=== PATIENT | female | born 1985 ===

== ENCOUNTER 2024-11-03 21:32 | Emergency (ER) | payer OTHER ==
[2024-11-03 22:12] LABS: BASOPHILS ABSOLUTE AUTO 0.02 10^3/uL (0.00-0.50); BASOPHILS PERCENT AUTO 0.1 % (0-1); HEMATOCRIT 39.6 % (37.0-47.0); HEMOGLOBIN 13.3 g/dL (12.0-16.0); IMMATURE GRAN ABSOLUTE AUTO 0.07 10^3/uL (0.00-0.49); IMMATURE GRAN PERCENT AUTO 0.5 % (0.0-4.9); LYMPHOCYTES ABSOLUTE AUTO 1.07 10^3/uL (0.60-5.00); MEAN CORPUSCULAR HEMOGLOBIN 32.6 pg (27.0-32.0); MEAN CORPUSCULAR HGB CONC 33.6 g/dL (32.0-36.0); MEAN CORPUSCULAR VOLUME 97.1 fL (83.0-97.0); MONOCYTES ABSOLUTE AUTO 0.59 10^3/uL (0.00-1.50); MONOCYTES PERCENT AUTO 4.4 % (0-10); NEUTROPHILS ABSOLUTE AUTO 11.64 x10^3/uL (1.80-8.00); PLATELET COUNT,PLT 356 10^3/uL (150-400); RED BLOOD CELL COUNT 4.08 x10^6/uL (4.00-5.50); WHITE BLOOD CELL COUNT,WBC 13.4 10^3/uL (4.0-11.0)
[2024-11-03 22:25] LABS: ALANINE AMINOTRANSFERASE,ALT 30 U/L (12-78); ALBUMIN 3.3 g/dL (3.4-5.0); ALKALINE PHOSPHATASE 76 U/L (46-116); ASPARTATE AMNIOTRANSFERASE,AST 27 U/L (15-37); BILIRUBIN TOTAL 0.2 mg/dL (0.0-1.0); BLOOD UREA NITROGEN,BUN 8 mg/dL (7-18); CALCIUM 8.3 mg/dL (8.4-10.1); CARBON DIOXIDE,CO2 24 mmol/L (21-32); CHLORIDE,CL 105 mEq/L (98-106); CREATININE 0.8 mg/dL (0.6-1.0); ETHANOL BLOOD MEDICAL 200 mg/dL (0-3); GLUCOSE RANDOM 120 mg/dL (75-99); LIPASE 29 U/L (16-77); POTASSIUM,K 4.1 mEq/L (3.5-5.0); PROTEIN TOTAL,TP 7.3 g/dL (6.4-8.2); SODIUM,NA 141 mEq/L (136-145)
[2024-11-03 22:26] LABS: C-REACTIVE PROTEIN < 0.50 mg/dL (<=0.50); ESTIMATED GFR 96 mL/min (>=60)
[2024-11-03 22:28] LABS: INR 0.92 (0.92-1.18); PROTHROMBIN TIME 9.7 SEC (9.3-11.3)
[2024-11-03 22:39] LABS: APPEARANCE,URINE CLEAR (CLEAR); BILIRUBIN,URINE NEGATIVE (NEGATIVE); COLOR,URINE LIGHT YELLOW (YELLOW); GLUCOSE,URINE NEGATIVE (NEGATIVE); KETONES,URINE NEGATIVE (NEGATIVE); LEUKOCYTE ESTERASE,URINE NEGATIVE (NEGATIVE); NITRITE,URINE NEGATIVE (NEGATIVE); PROTEIN,URINE NEGATIVE (NEGATIVE); UROBILINOGEN,URINE 0.2 EU/dL (0.2-1.0)
[2024-11-03 22:40] LABS: OCCULT BLOOD,URINE NEGATIVE (NEGATIVE)
== END 2024-11-03 23:08 | disposition home or self-care (01) ==
LOC: CC.ED 21:32
DX: S01.531A Puncture wound without foreign body of lip, initial encounter (principal); Z88.0 Allergy status to penicillin; Z88.1 Allergy status to other antibiotic agents; V47.5XXA Car driver injured in collision with fixed or stationary object in traffic accident, initial encounter
CPT/HCPCS: 36415; 70450; 71045; 72125; 72170; 80053; 80307; 81003; 83690; 85025; 85610; 85730; 86140; 99284; 99285